=== PATIENT | female | born 1960 | race Caucasian/White ===

== ENCOUNTER 2017-01-25 12:13 | Inpatient (IN) | payer OTHER, MEDICARE ==
[~2017-01-25] VITALS: Ht 175.3 cm; Wt 83.0 kg
[~2017-01-25 12:13] MED LIST: ACYC-1 PO; ADVA250A INH; ALBU0.086 INH; ASCO500C PO; BLAC540C3 PO; FING1CAP PO; FISHOIL XX; IPRA0.02 IN; LOMO PO; PROV200T11 PO; RANI150 PO; ROPI.25 PO; SOMA350T PO; TIMO0.5S29 OP; TOBRA.3%O RIGHT EYE; TOPA25TA8 PO; ULTR50TA OR; VENTAER INH; VITA100T55 PO; VITA200T5 PO; Vit B12; ZOLO50TA PO
[2017-01-25] MEDS ORDERED: CHLORHEXIDINE GLUCONATE 2 % 1 PACK (2 CLOTHS) TOPICAL PRN (13:00)
[2017-01-25] MEDS ORDERED: SODIUM CHLORID 0.9% 500 ML IV PRN (13:00)
[2017-01-25] MEDS ORDERED: METOPROLOL TARTRATE 25 MG TAB PO PRN (13:00)
[2017-01-25] MEDS ORDERED: INSULIN HUMAN REGULAR 1,000 UNITS/10 ML VIAL SQ PRN (13:00)
[2017-01-25] MEDS ORDERED: LACTATED RINGER'S 1000 ML IV PRN (13:00)
[2017-01-25] MEDS ORDERED: POVIDONE IODINE 5% (ANTISEPSIS KIT) 4 APPLICATIONS EACH NARE PRN (13:00)
[2017-01-25] MEDS ORDERED: CHLORHEXIDINE GLUCONATE 4% SOLN 120 ML BTL TOPICAL SCH (13:15)
[2017-01-25] MEDS ORDERED: POVIDONE IODINE 7.5% SCRUB 118 ML BOTTLE TOPICAL SCH (13:15)
--- NOTE | 2017-01-25 13:27 | RADRPT ---
EXAM DATE/TIME: 01/25/2017 12:56 [facility] COMPARISON: CT scan portal imaging 09/07/16 INDICATIONS : Pre-op hip surgery. Evaluate for pneumonia. pneumothorax, and communicable diseases. MEDICAL HISTORY : None. SURGICAL HISTORY : None. ENCOUNTER: Initial ACUITY: 1 day PAIN SCORE: 0/10 LOCATION: Bilateral chest FINDINGS: Granuloma seen in the left midlung. CT scan had described 3 other nodules are appreciated. There is no infiltrate. The cardiomediastinal contours are unremarkable. Osseous structures are int act. CONCLUSION: Negative for acute process. CT scan of the chest had shown no noncalcified nodules. Lucas Bazan MD FACR on January 25, 2017 at 13:23 Board Certified Radiologist. This report was verified electronically.
[2017-01-25] MEDS ORDERED: IPRASOL INH (13:28)
[2017-01-25] MEDS ORDERED: TOPA25TA8 PO (13:28)
[2017-01-25] MEDS ORDERED: ZANT150T2 PO (13:28)
[2017-01-25] MEDS ORDERED: ZOLO25TA PO (13:28)
[2017-01-25] MEDS ORDERED: SOMA350T PO (13:28)
[2017-01-25] MEDS ORDERED: TRAM50TA PO (13:28)
[2017-01-25] MEDS ORDERED: ACYC800T PO (13:28)
[2017-01-25] MEDS ORDERED: ADVA250A INH (13:28)
[2017-01-25] MEDS ORDERED: AMBI5TAB PO (13:28)
[2017-01-25] MEDS ORDERED: TERI14TA PO (13:28)
[2017-01-25] MEDS ORDERED: VOLT1GEL4 TOPICAL (13:28)
[2017-01-25] MEDS ORDERED: PROV200T11 PO (13:28)
[2017-01-25] MEDS ORDERED: ROPI.5 PO (13:28)
[2017-01-25] MEDS ORDERED: VENTAER INH (13:28)
[2017-01-25] MEDS ORDERED: TIMO0.5S30 RIGHT EYE (13:29)
[2017-01-25 13:42] LABS: BACTERIA, URINE RARE /hpf; BLOOD, URINE NEG (NEG); COMMENT (UR) CULT NOT INDICATED; CULTURE IF INDICATED CULT NOT INDICATED; GLUCOSE,URINE NEG (NEG); KETONE, URINE 10 mg/dL (NEG); MUCUS URINE FEW /lpf (OCC); NITRITE,URINE NEG (NEG); SQUAMOUS EPITHELIAL CELL URINE <1 /hpf (0-5); URINE COLOR YELLOW (YELLW/STRAW)
[2017-01-25 14:06] LABS: AUTOMATED NEUTROPHIL # 2.4 TH/MM3 (1.8-7.7); BASOPHIL % 0.5 % (0.0-2.0); EOSINOPHIL % 0.5 % (0.0-4.0); HEMATOCRIT 37.8 % (35.0-46.0); HEMO FLAGS DIFF FINAL; LYMPH % 18.4 % (9.0-44.0); LYMPHOCYTE # 0.6 TH/MM3 (1.0-4.8); MEAN CELL VOLUME 91.2 FL (80.0-100.0); MEAN CORPUSCULAR HEMOGLOBIN 30.3 PG (27.0-34.0); MEAN CORPUSCULAR HGB CONC 33.2 % (32.0-36.0); MONO % 10.3 % (0.0-8.0); NEUT % 70.3 % (16.0-70.0); PLATELET COUNT 158 TH/MM3 (150-450); RED BLOOD COUNT 4.14 MIL/MM3 (4.00-5.30); RED CELL DISTRIBUTION WIDTH 12.5 % (11.6-17.2); WHITE BLOOD COUNT 3.5 TH/MM3 (4.0-11.0)
[2017-01-25 14:12] LABS: APTT (PATIENT) 29.3 SEC (24.3-30.1); PROTHROMBIN TIME - PATIENT 11.2 SEC (9.8-11.6)
[2017-01-25] MEDS ORDERED: ceFAZolin 2 GM PREMIX 50 ML IV SCH (14:15)
[2017-01-25 14:20] LABS: ANION GAP 8 MEQ/L (5-15); AST (GOT) 20 U/L (15-37); BICARBONATE 28.5 MEQ/L (21.0-32.0); BLOOD UREA NITROGEN 10 MG/DL (7-18); CHLORIDE 103 MEQ/L (98-107); GLOMERULAR FILTRATION RATE 93 ML/MIN (>89); POTASSIUM 3.7 MEQ/L (3.5-5.1); SODIUM (NA) 139 MEQ/L (136-145)
[2017-01-25 14:21] LABS: ALT (GPT) 26 U/L (10-53)
[2017-01-25 14:23] LABS: ALKALINE PHOSPHATASE 119 U/L (45-117); TOTAL BILIRUBIN ADULT 0.6 MG/DL (0.2-1.0)
[2017-01-25] MEDS ORDERED: GENTAMICIN SULFATE 80 MG/2 ML VIAL ONE (15:07)
[2017-01-25] MEDS ORDERED: VANCOMYCIN HCL 1000 MG VIAL ONE (16:20)
[2017-01-25] MEDS ORDERED: CLINDAMYCIN PHOS 900 MG/6 ML VIAL ONE (16:20)
[2017-01-25] MEDS ORDERED: SODIUM CHLOR 0.9% 250 ML INJ 250 ML ONE (16:21)
[2017-01-25] MEDS ORDERED: ONDANSETRON HCL 4 MG/2 ML VIAL IVP PRN (16:45)
[2017-01-25] MEDS ORDERED: Post-op Orders (for Pharmacy) MISC XX ONE (16:45)
[2017-01-25] MEDS ORDERED: SODIUM CHLORIDE 0.9% FLUSH 5 ML FLUSH IVF PRN (16:45)
[2017-01-25] MEDS ORDERED: ACETAMINOPHEN/HYDROcodone 325 MG/7.5 MG TAB PO PRN ×2 (16:45)
[2017-01-25] MEDS ORDERED: MISCELLANEOUS PHARMACY INFORMATION XX ONE (16:45)
[2017-01-25] MEDS ORDERED: MAGNESIUM HYDROXIDE SUSP 30 ML CUP PO PRN (16:45)
[2017-01-25] MEDS ORDERED: ZOLPIDEM TARTRATE 5 MG TAB PO PRN (16:45)
[2017-01-25] MEDS ORDERED: MISCELLANEOUS NURSING INFORMATION XX PRN (16:45)
[2017-01-25] MEDS ORDERED: MORPHINE SULFATE 4 MG/ML INJ IV PUSH PRN (16:45)
[2017-01-25] MEDS ORDERED: ENOX40P SQ (16:50)
[2017-01-25] MEDS ORDERED: ASPI81CH37 CHEW (16:50)
[2017-01-25] MEDS ORDERED: HYDR-3288 PO (16:51)
[2017-01-25] MEDS: DEXT 5%-NACL 0.45% 1000 ML INJ 1,000 ML IV SCH (18:00)
[2017-01-25] MEDS ORDERED: *morphine SULFATE 8 MG/ML PERIprocedure ONLY ONE ×2 (18:02→18:38)
--- NOTE | 2017-01-25 18:18 | RADRPT ---
EXAM DATE/TIME: 01/25/2017 17:25 [facility] COMPARISON: No previous studies available for comparison. INDICATIONS : ORIF lt hip MEDICAL HISTORY : None. SURGICAL HISTORY : None. ENCOUNTER: Initial ACUITY: 1 day PAIN SCORE: Non-responsive. LOCATION: Left Hip FINDINGS: Multiple views left hip were obtained intraoperatively using a matrix camera and demonstrate the paresh ent is status post open rigid internal fixation with intramedullary velma and locking cannulated screw. The fracture fragments are in anatomic alignment. The acetabulum is intact. There is overlying soft tissue swelling. CONCLUSION: Status post open rigid internal fixation. Johnny Fabian MD on January 25, 2017 at 18:16 Board Certified Radiologist. This report was verified electronically.
[2017-01-25] MEDS ORDERED: *MEPERIDINE 25 MG INJ VIAL PERIprocedural Use ONLY ONE (18:19)
[2017-01-25] MEDS ORDERED: DO NOT ADM ANY ANTICOAGULANT DRUGS PRN (18:30)
[2017-01-25 19:45] VITALS: BP 148/73; PULSE 87; RESP 20; TEMP 99; O2SAT 100
[2017-01-25] MEDS ORDERED: NON-FORMULARY DRUG (Ranitidine (Zantac) 150 MG) PO SCH (21:00)
[2017-01-25] MEDS: CLINDAMYCIN 600 MG/NS 100 ML IV SCH ×2 (21:39)
[2017-01-25] MEDS: CARISOPRODOL 350 MG TAB PO PRN (21:39)
[2017-01-25] MEDS: FAMOTIDINE 20 MG TAB PO SCH (21:40)
[2017-01-25] MEDS: DOCUSATE SODIUM 50 MG/SENNA 8.6 MG TAB PO SCH (21:41)
[2017-01-25] MEDS: TOPIRAMATE 25 MG TAB PO SCH (21:42)
[2017-01-25] MEDS: SERTRALINE HCL 50 MG TAB PO SCH (21:43)
[2017-01-25] MEDS: SODIUM CHLORIDE 0.9% FLUSH 5 ML FLUSH IVF SCH (21:45)
[2017-01-25] MEDS: diphenhydrAMINE HCL 25 MG CAP PO PRN (21:50)
[2017-01-26 00:14] VITALS: BP 140/79; PULSE 106; RESP 18; TEMP 99.3; O2SAT 97
[2017-01-26] MEDS: CLINDAMYCIN 600 MG/NS 100 ML IV SCH ×4 (03:18→09:29)
[2017-01-26] MEDS: DEXT 5%-NACL 0.45% 1000 ML INJ 1,000 ML IV SCH ×2 (03:18→14:00)
[2017-01-26] MEDS: traMADol HCL 50 MG TAB PO PRN ×3 (03:19→14:06)
[2017-01-26 04:17] VITALS: BP 132/82; PULSE 105; RESP 17; TEMP 98.9; O2SAT 97
[2017-01-26] MEDS: CARISOPRODOL 350 MG TAB PO PRN ×3 (05:33→14:06)
[2017-01-26 05:46] LABS: HEMATOCRIT 30.9 % (35.0-46.0); MEAN CELL VOLUME 89.9 FL (80.0-100.0); MEAN CORPUSCULAR HEMOGLOBIN 29.9 PG (27.0-34.0); MEAN CORPUSCULAR HGB CONC 33.3 % (32.0-36.0); PLATELET COUNT 139 TH/MM3 (150-450); RED BLOOD COUNT 3.44 MIL/MM3 (4.00-5.30); RED CELL DISTRIBUTION WIDTH 12.3 % (11.6-17.2); REVIEW FLAG FINAL; WHITE BLOOD COUNT 5.7 TH/MM3 (4.0-11.0)
[2017-01-26 06:34] LABS: BICARBONATE 29.8 MEQ/L (21.0-32.0); POTASSIUM 3.5 MEQ/L (3.5-5.1)
--- NOTE | 2017-01-26 07:59 | PD.ORT.PN ---
Subjective Post Op Day #: 1 Subjective Remarks left hip sore. otherwise doing ok. continued L knee pain. Objective Vitals Vital Signs Date Time Temp Pulse Resp B/P (MAP) Pulse Ox O2 Delivery O2 Flow Rate FiO2 01/26/17 04:17 98.9 105 17 132/82 (99) 97 01/26/17 00:14 99.3 106 18 140/79 (99) 97 01/25/17 19:45 99.0 87 20 148/73 (98) 100 01/25/17 19:00 98.0 84 17 154/73 (100) 100 Nasal Cannula 2 01/25/17 18:45 82 15 159/77 (104) 100 Nasal Cannula 2 01/25/17 18:43 15 01/25/17 18:30 79 15 168/72 (104) 100 Nasal Cannula 2 01/25/17 18:15 77 18 165/95 (118) 100 Nasal Cannula 2 01/25/17 18:07 20 01/25/17 18:00 81 15 169/89 (115) 100 Nasal Cannula 2 01/25/17 17:50 97.9 92 15 170/91 (117) 100 Nasal Cannula 2 01/25/17 14:20 98.0 84 20 167/97 (120) 100 I/O 01/25/17 01/25/17 01/25/17 01/26/17 01/26/17 01/26/17 07:00 15:00 23:00 07:00 15:00 23:00 Intake Total 1244 ml 998 ml Output Total 50 ml Balance 1194 ml 998 ml Intake Oral 240 ml 360 ml IV Total 204 ml 638 ml Other 800 ml Output Estimated Blood Loss 50 ml # Voids 4 5 # Bowel Movements 0 0 Result Diagram: 01/26/17 0516 01/26/17 0516 Other Results Laboratory Tests Test 01/25/17 13:30 Prothromb Time International Ratio 1.0 RATIO Prothrombin Time 11.2 SEC (9.8-11.6) Objective Remarks in bed, nad dressing c/d/i neg homans nvi Assessment & Plan Ortho Post Op Day #: 1 Problem List: Assessment and Plan s/p L Troch Nail wbat ok to maintain dressing unless saturated lovenox d/c planning home with hhc and pt - ok to d/c if does well with PT rx in chart f/up dr. abdalla 2 weeks Musa Lockhart Jan 26, 2017 07:59
[2017-01-26 08:00] VITALS: BP 147/87; PULSE 103; RESP 18; TEMP 98.7; O2SAT 97
--- NOTE | 2017-01-26 08:02 | HHI.DCPOC ---
Discharge Care Plan Diagnosis: (1) Closed fracture of intertrochanteric section of femur Your Health Problems Are: Difficulty with ADL Goals to Promote Your Health * To prevent worsening of your condition and complications * To maintain your health at the optimal level Directions to Meet Your Goals Take your medications as prescribed Follow your dietary instruction Follow activity as directed Keep your appointments as scheduled Take your immunizations and boosters as scheduled If your symptoms worsen call your PCP, if no PCP go to Urgent Care Center or Emergency Room Smoking is Dangerous to Your Health. Avoid second hand smoke Call the 24-hour hour crisis hotline for domestic abuse at Musa Lockhart Jan 26, 2017 08:02
--- NOTE | 2017-01-26 08:03 | HHI.FF ---
Face to Face Verification Diagnosis: (1) Closed fracture of intertrochanteric section of femur Physical Therapy Gait training, Safety evaluation, Transfer training, bed to chair Left LE Weight Bearing: WB as tolerated Nursing RN: 3 days/week x 2 weeks Nursing: Anita teaching, Dressing changes Dressing Changes: Daily dressing change Additional Instructions maintain current dressing for 1 week then daily dressing changes. I have seen patient Bharti Hernandez on 01/26/17. My clinical findings support the need for the requested home health care services because: Limited ability to care for self High risk of falls I certify that my clinical findings support that this patient is homebound because: Post-op weakness Unsteady gait/balance Musa Lockhart Jan 26, 2017 08:03
[2017-01-26] MEDS: SODIUM CHLORIDE 0.9% FLUSH 5 ML FLUSH IVF SCH (08:46)
[2017-01-26] MEDS: DOCUSATE SODIUM 50 MG/SENNA 8.6 MG TAB PO SCH (08:47)
[2017-01-26] MEDS: FAMOTIDINE 20 MG TAB PO SCH (08:48)
[2017-01-26] MEDS: MULTIVITAMINS/MINERALS THERAPEUTIC TAB PO SCH ×2 (08:49→08:55)
[2017-01-26] MEDS: SERTRALINE HCL 50 MG TAB PO SCH (08:50)
[2017-01-26] MEDS: TOPIRAMATE 25 MG TAB PO SCH (08:50)
--- NOTE | 2017-01-26 09:30 | MP ---
cc: KAYLYNN BRAUN M.D. DATE OF SURGERY 01/25/2017 PREOPERATIVE DIAGNOSIS Left intertrochanteric hip fracture. POSTOPERATIVE DIAGNOSIS Left intertrochanteric hip fracture. PROCEDURE Intramedullary nailing left intertrochanteric hip fracture. SURGEON Dr. Kaylynn Braun SALES AMBASSADOR Hilario Lockhart PA-C ANESTHESIA General. ESTIMATED BLOOD LOSS 100 cc. COMPLICATIONS None. IMPLANTS USED Synthes. JUSTIFICATION The patient is a 56-year-old female with history of multiple sclerosis. She has had multiple recent falls. She complained of severe pain in regards to her left hip with inability to stand or bear weight to the left side. She was evaluated by the undersigned at the [facility]. X-rays confirmed evidence of a fracture of the left intertrochanteric hip as well as also fracture in the region of the femoral neck. The patient was counseled as to the risks, benefits and alternatives to the above-named proposed surgical procedure. She did wish to proceed with surgery. PROCEDURE IN DETAIL written consent was obtained. The patient was identified by name, taken to the operating room, placed supine on the operating room table. General anesthesia was administered as well as 600 mg of IV clindamycin and 1 gram of IV vancomycin. The left foot was placed in a padded traction boot. The right leg was placed in a padded well-leg mc. All bony pounds and pressure points were well padded. The left hip and left lower extremity were prepped and draped using isopropyl alcohol, Hibiclens solution and Chloraprep solution. After a time-out was performed a longitudinal incision was made in the lateral aspect of the left hip. The fascial layer was incised. A guidewire was used to gain entrance into the intramedullary canal of the femur. This was followed by an entry reamer and subsequent placement of a 170 x 11-mm titanium Synthes trochanteric femoral nail. The 130 degree locking jig was used to place the guide pin centered into the femoral head on the AP and lateral fluoroscopic projections. This was followed by reaming and placement of a 95 mm lag screw. The locking screw was then secured to a fixed-angle sliding construct distally. The locking jig was used to place a single static lateral to medial transverse locking screw. Fluoroscopic imaging again confirmed hardware placement and fracture reduction. The surgical wounds were thoroughly irrigated with sterile saline solution. The fascial layer was closed with #1 Vicryl suture, the subcutaneous tissue with 2-0 Vicryl suture and the skin was closed with Dermabond. Sterile dressing applied. The patient tolerated the procedure well with no intraoperative complications noted. Hilario Lockhart, physician banking assistant certified, was present during the entire procedure to include patient positioning and the procedure itself. The medical necessity of a physician banking assistant was indicated in this case due to the complexity of the procedure. He assisted with appropriate manipulation of the leg and also retraction of muscle tendon, bone and neurovascular structures. He assisted with preparation of bone and also implantation of the internal fixation device. Kaylynn Braun MD JWAline/AARON /5:36 PM /9:19 AM
[2017-01-26] MEDS: diphenhydrAMINE HCL 25 MG CAP PO PRN (09:59)
[2017-01-26 11:30] VITALS: O2SAT 95
[2017-01-26 12:10] VITALS: BP 149/90; PULSE 98; RESP 20; TEMP 98.2; O2SAT 95
--- NOTE | 2017-01-26 12:11 | PD.CONS ---
[facility] Request[facility] By Reason for Consult medical management Primary Care Physician No Primary Care Physician Diagnoses: History of Present Illness patient is a 56 y/o female who had a fall and sustained left hip fracture and underwent left hip intramedullary nailing. at the time of my evaluation she was resting fairly comfortably with no acute distress. pain was fairly controlled. she denies any other complaints including chest pain, sob, dizziness or nausea. Review of Systems Constitutional: DENIES: Fever, Weight loss, Chills, Night Sweats Eyes: DENIES: Blurred vision, Diplopia, Vision loss, Double Vision Ears, nose, mouth, throat: DENIES: Tinnitus, Vertigo, Throat pain, Epistaxis Respiratory: DENIES: Apneas, Cough, Snoring, Wheezing, Hemoptysis, Sputum production, Shortness of breath Cardiovascular: DENIES: Chest pain, Palpitations, Syncope, Dyspnea on Exertion , PND, Lower Extremity Edema, Orthopnea, Claudication Gastrointestinal: DENIES: Abdominal pain, Black stools, Bloody stools, Constipation, Diarrhea, Nausea, Vomiting, Difficulty Swallowing, Anorexia Genitourinary: DENIES: Urinary frequency, Urgency, Hematuria, Dysuria Musculoskeletal: COMPLAINS OF: Joint pain (left hip), DENIES: Muscle aches, Stiffness, Joint Swelling Integumentary: DENIES: Rash Neurologic: DENIES: Abnormal gait, Headache, Localized weakness, Paresthesias, Seizures, Speech Problems, Tremor, Poor Balance Psychiatric: DENIES: Anxiety, Confusion, Mood changes, Depression, Hallucinations, Agitation, Suicidal Ideation, Homicidal Ideation, Delusions Past Family Social History Allergies: Coded Allergies: adhesive (Unverified Allergy, Severe, Rash, 01/25/17) baclofen (Unverified Allergy, Severe, Hives, 01/25/17) buprenorphine (Unverified Allergy, Severe, CARDIO-SEVERE REACTION, 01/25/17 ) butorphanol (Unverified Allergy, Severe, CARDIO-SEVERE REACTION, 01/25/17) ciprofloxacin (Unverified Allergy, Severe, Flushing, 01/25/17) citalopram (Unverified Allergy, Severe, RASH, HIVES, SUICIDAL IDIATIONS, 01/25/17) dexamethasone (Unverified Allergy, Severe, 01/25/17) etodolac (Unverified Allergy, Severe, Hives, 01/25/17) gabapentin (Unverified Allergy, Severe, HYPERACTIVE, 01/25/17) loratadine (Unverified Allergy, Severe, PASSES OUT, 01/25/17) lorazepam (Unverified Allergy, Severe, 11/08/16) metaxalone (Unverified Allergy, Severe, CAN'T BREATHE, 01/25/17) nalbuphine (Unverified Allergy, Severe, CARDIO-SEVERE REACTION, 01/25/17) nitrofurantoin (Unverified Allergy, Severe, Rash, 01/25/17) orphenadrine (Unverified Allergy, Severe, 01/25/17) penicillin G (Unverified Allergy, Severe, 11/08/16) thiopental (Unverified Allergy, Severe, DON'T WAKE UP, 01/25/17) hydroxyzine (Unverified Adverse Reaction, Intermediate, extreme hyperactive, 01/25/17) Past Medical History osteoarthritis bronchial asthma borderline diabetes multiple sclerosis Past Surgical History appendectomy cervical fusion carpal tunnel surgery Reported Medications duoneb albuterol advair Aubagio Active Ordered Medications Current Medications Lactated Ringer's 1,000 ml @ 30 mls/hr Q24H PRN IV SEE LABEL COMMENTS Last administered on 01/25/17 13:00; Start 01/25/17 at 13:00; Stop 01/28/17 at 12:59 Sodium Chloride 500 ml @ 30 mls/hr [id number] PRN IV SEE LABEL COMMENTS; Start at 13:00; Stop 01/28/17 at 12:59 Metoprolol Tartrate (Lopressor) 25 mg SHOP MECHANIC PRN PO SEE LABEL COMMENTS; Start 01/25/17 at 13:00; Stop 01/28/17 at 12:59 Povidone Iodine (Betadine 5% Antisepsis Kit) 1 applic SHOP MECHANIC PRN EACH NARE SEE LABEL COMMENTS Last administered on 01/25/17 14:00; Start 01/25/17 at 13:00 ; Stop 01/28/17 at 12:59 Chlorhexidine Gluconate (Chlorhexidine 2% Cloth) 3 pack SHOP MECHANIC PRN TOPICAL SEE LABEL COMMENTS Last administered on 01/25/17 12:40; Start 01/25/17 at 13:00 ; Stop 01/28/17 at 12:59 Insulin Human Regular (NovoLIN R INJ) See Protocol Table ... SHOP MECHANIC PRN SQ SEE PROTOCOL TABLE; Start 01/25/17 at 13:00; Stop 01/28/17 at 12:59 Povidone Iodine (Betadine 7.5% Scrub) 1 applic ONCE TOPICAL Last administered on 01/25/17 14:23; Start 01/25/17 at 13:15; Stop 01/28/17 at 13:14 Chlorhexidine Gluconate (Hibiclens 4% Top Soln) 1 applic ONCE TOPICAL ; Start 01/25/17 at 13:15; Stop 01/28/17 at 13:14 Cefazolin Sodium/ Dextrose 50 ml @ 100 mls/hr SHOP MECHANIC IV ; Start 01/25/17 at 14:15; Stop 01/25/17 at 18:44; Status DC Gentamicin Sulfate (Gentamicin Inj) 240 mg STK-MED ONCE .ROUTE Last administered on 01/25/17 17:09; Start 01/25/17 at 15:07; Stop 01/25/17 at 15:08 ; Status DC Clindamycin Phosphate (Cleocin Inj) 900 mg STK-MED ONCE .ROUTE Last administered on 01/25/17 16:25; Start 01/25/17 at 16:20; Stop 01/25/17 at 16:21 ; Status DC Vancomycin HCl (Vancomycin Inj) 1,000 mg STK-MED ONCE .ROUTE Last administered on 01/25/17 16:45; Start 01/25/17 at 16:20; Stop 01/25/17 at 16:21; Status DC Sodium Chloride 250 ml @ As Directed STK-MED ONCE .ROUTE ; Start 01/25/17 at 16 :21; Stop 01/25/17 at 16:22; Status DC Carisoprodol (Soma) 350 mg QID PRN PO SPASM Last administered on 01/26/17 09: 34; Start 01/25/17 at 16:45 Ropinirole HCl (Requip) 0.5 mg BID PO Last administered on 01/26/17 08:48; Start 01/25/17 at 21:00 Sertraline HCl (Zoloft) 25 mg BID PO Last administered on 01/26/17 08:50; Start 01/25/17 at 21:00 Topiramate (Topamax) 25 mg BID PO ; Start 01/25/17 at 21:00 Non-Formulary Medication 150 mg BID PO ; Start 01/25/17 at 21:00; Status UNV Dextrose/Sodium Chloride 1,000 ml @ 100 mls/hr Q10H IV Last administered on 18:00; Start 01/25/17 at 18:00 IV Flush (NS Flush) 2 ml UNSCH PRN IVF FLUSH AFTER USING IV ACCESS Last administered on 01/25/17 23:10; Start 01/25/17 at 16:45 IV Flush (NS Flush) 2 ml BID IVF Last administered on 01/26/17 08:46; Start 01/25/17 at 21:00 Miscellaneous Information (Post-op Orders (for Pharmacy)) STAT ONCE XX ; Start 01/25/17 at 16:45; Stop 01/25/17 at 17:58; Status DC Enoxaparin Sodium (Lovenox Inj) 40 mg Q24H SQ ; Start 01/26/17 at 17:00; Stop 02/04/17 at 17:01 Senna/Docusate Sodium (Coral-Colace) 1 tab BID PO Last administered on 21:41; Start 01/25/17 at 21:00 Magnesium Hydroxide (Milk Of Magnesia Liq) 10 ml Q12H PRN PO CONSTIPATION; Start 01/25/17 at 16:45 Cefazolin Sodium 1000 mg/Sodium Chloride 100 ml @ 200 mls/hr Q8H IV ; Start at 16:45; Status UNV Miscellaneous Information UNSCH PRN XX SEE LABEL COMMENTS; Start 01/25/17 at 16:45 Miscellaneous Medication ([facility] Pharmacy Information) ONCE ONCE XX ; Start 01/25/17 at 16:45; Stop 01/25/17 at 17:58; Status DC Acetaminophen/ Hydrocodone Bitart ([place] 7.5-325 Mg) 1 tab Q4H PRN PO PAIN LESS THAN 5 ON SCALE Last administered on 01/25/17 23:09; Start 01/25/17 at 16: 45; Stop 01/25/17 at 23:34; Status DC Acetaminophen/ Hydrocodone Bitart ([place] 7.5-325 Mg) 2 tab Q6H PRN PO PAIN GREATER THAN/EQUAL TO 5; Start 01/25/17 at 16:45; Stop 01/25/17 at 23:34; Status DC Morphine Sulfate (Morphine Inj) 3 mg Q3H PRN IV PUSH 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; Start 01/25/17 at 16:45 Ondansetron HCl (Zofran Inj) 4 mg Q4H PRN IVP NAUSEA OR VOMITING Last administered on 01/25/17 23:09; Start 01/25/17 at 16:45 Multivitamins/ Minerals Therapeutic (Theragran M Tab) 1 tab DAILY PO ; Start at 09:00 Diphenhydramine HCl (Benadryl) 25 mg Q6H PRN PO ITCHING Last administered on 09:59; Start 01/25/17 at 16:45 Zolpidem Tartrate (Ambien) 5 mg HS PRN PO SLEEP; Start 01/25/17 at 16:45 Famotidine (Pepcid) 20 mg BID PO Last administered on 01/26/17 08:48; Start 01/25/17 at 21:00 Morphine Sulfate (*morphine INJ PERIprocedure ONLY) 8 mg STK-MED ONCE .ROUTE Last administered on 01/25/17 18:02; Start 01/25/17 at 18:02; Stop 01/25/17 at 18:03; Status DC Miscellaneous Information ALL NURSING DEPARTME... UNSCH PRN .XX SEE LABEL COMMENTS; Start 01/25/17 at 18:30; Stop 01/26/17 at 18:29 Meperidine HCl (*DEMEROL INJ PERIprocedural ONLY) 25 mg STK-MED ONCE .ROUTE Last administered on 01/25/17 18:19; Start 01/25/17 at 18:19; Stop 01/25/17 at 18:20; Status DC Morphine Sulfate (*morphine INJ PERIprocedure ONLY) 8 mg STK-MED ONCE .ROUTE Last administered on 01/25/17 18:38; Start 01/25/17 at 18:38; Stop 01/25/17 at 18:39; Status DC Clindamycin Phosphate 600 mg/ Sodium Chloride 104 ml @ 208 mls/hr Q6H IV Last administered on 11/2/17at 09:29; Start 01/25/17 at 22:00; Stop 01/26/17 at 16:29 Tramadol HCl (Ultram) 100 mg Q4H PRN PO PAIN SCALE 1 TO 10 Last administered on 01/26/17t 08:51; Start 01/25/17 at 23:45 Social History no smoking or drinking. Physical Exam Vital Signs Vital Signs Date Time Temp Pulse Resp B/P (MAP) Pulse Ox O2 Delivery O2 Flow Rate FiO2 01/26/17 08:00 98.7 103 18 147/87 (107) 97 01/26/17 04:17 98.9 105 17 132/82 (99) 97 01/26/17 00:14 99.3 106 18 140/79 (99) 97 01/25/17 19:45 99.0 87 20 148/73 (98) 100 01/25/17 19:00 98.0 84 17 154/73 (100) 100 Nasal Cannula 2 01/25/17 18:45 82 15 159/77 (104) 100 Nasal Cannula 2 01/25/17 18:43 15 01/25/17 18:30 79 15 168/72 (104) 100 Nasal Cannula 2 01/25/17 18:15 77 18 165/95 (118) 100 Nasal Cannula 2 01/25/17 18:07 20 01/25/17 18:00 81 15 169/89 (115) 100 Nasal Cannula 2 01/25/17 17:50 97.9 92 15 170/91 (117) 100 Nasal Cannula 2 01/25/17 14:20 98.0 84 20 167/97 (120) 100 Physical Exam GENERAL: This is a well-nourished, well-developed patient, in no apparent distress. SKIN: No rashes, ecchymoses or lesions. Cool and dry. HEAD: Atraumatic. Normocephalic. No temporal or scalp tenderness. EYES: Pupils equal round and reactive. Extraocular motions intact. No scleral icterus. No injection or drainage. ENT: Nose without bleeding, purulent drainage or septal hematoma. Throat without erythema, tonsillar hypertrophy or exudate. Uvula midline. Airway patent. NECK: Trachea midline. No JVD or lymphadenopathy. Supple, nontender, no meningeal signs. CARDIOVASCULAR: Regular rate and rhythm without murmurs, gallops, or rubs. RESPIRATORY: Clear to auscultation. Breath sounds equal bilaterally. No wheezes , rales, or rhonchi. GASTROINTESTINAL: Abdomen soft, non-tender, nondistended. No hepato-splenomegaly , or palpable masses. No guarding. MUSCULOSKELETAL: left hip covered with clean dressing. NEUROLOGICAL: Awake and alert. Cranial nerves II through XII intact. Motor and sensory grossly within normal limits. Five out of 5 muscle strength in all muscle groups. Normal speech. Laboratory Laboratory Tests Test 01/25/17 13:17 01/25/17 13:30 01/26/17 05:16 Urine Color YELLOW Urine Turbidity HAZY Urine pH 8.0 Urine Specific [place] 1.012 Urine Protein NEG Urine Glucose (UA) NEG Urine Ketones 10 Urine Occult Blood NEG Urine Nitrite NEG Urine Bilirubin NEG Urine Urobilinogen LESS THAN 2.0 Urine Leukocyte Esterase MOD Urine RBC 1 Urine WBC 4 Urine Squamous Epithelial Cells <1 Urine Bacteria RARE Urine Mucus FEW Microscopic Urinalysis Comment CULT NOT INDICATED White Blood Count 3.5 5.7 Red Blood Count 4.14 3.44 Hemoglobin 12.6 10.3 Hematocrit 37.8 30.9 Mean Corpuscular Volume 91.2 89.9 Mean Corpuscular Hemoglobin 30.3 29.9 Mean Corpuscular Hemoglobin Concent 33.2 33.3 Red Cell Distribution Width 12.5 12.3 Platelet Count 158 139 Mean Platelet Volume 8.0 7.4 Neutrophils (%) (Auto) 70.3 Lymphocytes (%) (Auto) 18.4 Monocytes (%) (Auto) 10.3 Eosinophils (%) (Auto) 0.5 Basophils (%) (Auto) 0.5 Neutrophils # (Auto) 2.4 Lymphocytes # (Auto) 0.6 Monocytes # (Auto) 0.4 Eosinophils # (Auto) 0.0 Basophils # (Auto) 0.0 CBC Comment DIFF FINAL Differential Comment Erythrocyte Sedimentation Rate 20 Prothrombin Time 11.2 Prothromb Time International Ratio 1.0 Activated Partial Thromboplast Time 29.3 Blood Urea Nitrogen 10 9 Creatinine 0.66 0.63 Random Glucose 100 119 Total Protein 7.0 Albumin 3.7 Calcium Level 9.4 8.1 Alkaline Phosphatase 119 Aspartate Amino Transf (AST/SGOT) 20 Alanine Aminotransferase (ALT/SGPT) 26 Total Bilirubin 0.6 Sodium Level 139 139 Potassium Level 3.7 3.5 Chloride Level 103 103 Carbon Dioxide Level 28.5 29.8 Anion Gap 8 6 Estimat Glomerular Filtration Rate 93 98 Result Diagram: 01/26/17 0516 01/26/17 0516 Imaging Last Impressions Hip X-Ray 01/25/17 0000 Signed Impressions: Service Date/Time: Wednesday, January 25, 2017 17:25 - CONCLUSION: Status post open rigid internal fixation. Johnny Fabian MD Chest X-Ray 01/25/17 0000 Signed Impressions: Service Date/Time: Wednesday, January 25, 2017 12:56 - CONCLUSION: Negative for acute process. CT scan of the chest had shown no noncalcified nodules. Lucas Bazan MD FACR Assessment and Plan Assessment and Plan A/P - left hip fracture- s/p intramedullary nailing continue with pain control and rehab efforts- management per ortho -multiple sclerosis/ asthma; resume home meds and f/u as outpatient -DVT prophylaxis with Lovenox- per ortho. Code Status dc planning per ortho. Emily Horner MD Jan 26, 2017 12:11
--- NOTE | 2017-01-26 14:42 | EKG ---
Date Performed: 01/25/2017 Time Performed: 13:04:53 PTAGE: 56 years EKG: Sinus rhythm POOR R WAVE PROGRESSION ANTERIOR PRECORDIUM, POSSIBLE ANTERIOR INFARCT, AGE UNDETERMINED BUT LARGELY UNCHANGED FROM PRIOR TRACING NORMAL ECG PREVIOUS TRACING : 09/08/2011 16.57 DOCTOR: Marcelo Florez Interpretating Date/Time 01/26/2017 14:41:38
[2017-01-26] MEDS ORDERED: ENOXAPARIN SODIUM 40 MG/0.4 ML SYRINGE SQ SCH (17:00)
== END 2017-01-26 15:03 | disposition home health service (06) | DRG 482 ==
LOC: HSDI 12:13 → EDSTATUS 16:00 → N06B 19:15
PROVIDERS: ADMIT Orthopaedic Surgery Sports Medicine; ATTEND Orthopaedic Surgery Sports Medicine
PROC: 0QH706Z Insertion of Intramedullary Internal Fixation Device into Left Upper Femur, Open Approach (ICD-10-PCS; principal; 2017-01-25 16:00)
DX: S72.142A Displaced intertrochanteric fracture of left femur, initial encounter for closed fracture (principal); G35 Multiple sclerosis; I10 Essential (primary) hypertension; R29.6 Repeated falls; M19.90 Unspecified osteoarthritis, unspecified site; R73.03 Prediabetes; J45.909 Unspecified asthma, uncomplicated; E78.5 Hyperlipidemia, unspecified; K21.9 Gastro-esophageal reflux disease without esophagitis; F32.9 Major depressive disorder, single episode, unspecified; Z88.0 Allergy status to penicillin; Z88.1 Allergy status to other antibiotic agents; Z98.1 Arthrodesis status
CPT/HCPCS: 71010; 73502; 76000; 80048; 80053; 81001; 82948; 85025; 85027; 85610; 85652; 85730; 86850; 86900; 86901; 93005; 94150; J1580; J2175; J2270; J2405; J3370; J7050; J7120